=== PATIENT | female | born 1975 | race Caucasian/White ===

== ENCOUNTER 2023-09-17 05:18 | Day surgery (SDC) | payer OTHER ==
[~2023-09-17 05:18] MED LIST: SYNTHROID112 MCG PO
[2023-09-17] MEDS ORDERED: POVIDONE-IODINE SCRUB 118 ML BOTT TOP ONE (07:21)
[2023-09-17] MEDS ORDERED: CLINDAMYCIN PHOSPHATE 150 MG/ML (900mg) ONE (07:21)
[2023-09-17] MEDS ORDERED: GENTAMICIN SULFATE 40 MG/ML VIAL ONE (07:21)
[2023-09-17] MEDS ORDERED: POVIDONE-IODINE 118 ML BOTT TOP ONE (07:21)
[2023-09-17] MEDS ORDERED: CEFAZOLIN SODIUM 1,000 MG VIAL ONE (07:21)
[2023-09-17] MEDS ORDERED: EPINEPHRINE HCL/PF 1 MG/ML AMPUL ONE (07:21)
[2023-09-17] MEDS ORDERED: BUPIVACAINE HCL/MPF 0.5% 30ML VIAL ONE (07:22)
[2023-09-17] MEDS ORDERED: VANCOMYCIN HCL 1,000 MG VIAL ONE (07:22)
[2023-09-17] MEDS ORDERED: SUGAMMADEX SODIUM 200 MG/2 ML VIAL IV ONE (10:22)
[2023-09-17] MEDS ORDERED: NITROGLYCERIN 1 INCH OINT..GM. TD ONE (10:35)
[2023-09-17] MEDS ORDERED: ONDANSETRON HCL 2 MG/ML VIAL IV PRN (12:45)
[2023-09-17] MEDS ORDERED: MORPHINE SULFATE 4 MG/ML VIAL IV PRN (12:45)
== END 2023-09-17 13:55 | disposition home or self-care (01) ==
LOC: CIR.AMB 05:18
PROVIDERS: ATTEND Plastic Surgery
DX: E88.1 Lipodystrophy, not elsewhere classified (principal); M62.08 Separation of muscle (nontraumatic), other site; E07.9 Disorder of thyroid, unspecified